=== PATIENT | male | born 2000 | race Two or more races ===

== ENCOUNTER 2024-12-23 03:39 | Inpatient (IN) | payer OTHER ==
[~2024-12-23] VITALS: Ht 170.2 cm; Wt 73.4 kg
[2024-12-23] VITALS (9 sets, daily range): BP systolic 116–126; BP diastolic 52–75; PULSE 35–45; RESP 13–20; TEMP 96.6–98.2; O2SAT 96–100
[2024-12-23] MEDS ORDERED: MORPHINE SULFATE INJ 2 MG/ml SYRG IV PRN (04:30)
[2024-12-23] MEDS ORDERED: NITROGLYCERIN 0.4 MG SL TAB SL PRN (04:30)
--- NOTE | 2024-12-23 04:54 | DVHHP2 ---
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 and seen by [facility] ER. Chest pain is sharp in nature, 8-9/10, radiates to the back occasionally, tried Motrin tablet but not helping, no aggravating factors. Patient received Aspirin in in [facility] ER and remained bradycardic with heart rate dropping to 34. Patient had bradycardia for the last 4 5 years. Stress test, echo, sleep study done and diagnosed NATALIE. Patient stopped use sleep machine due to feeling discomfort. Patient stated her grandfather having history of coronary artery disease and mother having heart disease. No history of sudden cardiac in his family. Currently patient denies any fever, cough, headache, blurry vision. No recent history of sick contact. Patient referred to [facility] for further management. PMHX: None PSHX: None Medicne: Nothing Personal and social hx: Never smokes cigarettes, use E cigarettes/vaping, use ETOH 4/5 days/week Allergy: No known allergy PCP: Unable to recall, [place]. Review of Systems Constitutional: No: Fever, Chills, Sweats, Weakness, Malaise, Other Eyes: No: Pain, Vision change, Conjunctivae inflammation, Eyelid inflammation, Other, Redness ENT: No: Ear pain, Ear discharge, Nose pain, Nose discharge, Nose congestion, Mouth pain, Mouth swelling, Throat pain, Throat swelling, Other Respiratory: Shortness of breath Cardiovascular: Chest Pain Gastrointestinal: No: Nausea, Vomiting, Abdominal Pain, Diarrhea, Constipation, Melena, Hematochezia, Other Genitourinary: No Dysuria, No Frequency, No Incontinence, No Hematuria, No Retention, No Other Musculoskeletal: No: other, neck pain, shoulder pain, arm pain, back pain, hand pain, leg pain, foot pain Skin: No: Rash, Lesions, Jaundice, Bruising, Other Neurological: No: Weakness, Numbness, Incoordination, Change in speech, Confusion, Seizures, Other Allergies: Coded Allergies: NO KNOWN ALLERGIES (Unverified , 12/23/24) Exam General Appearance: Alert, Oriented X3, Cooperative HEENT: PERRLA, EOMI Respiratory: Clear to auscultation Cardiovascular: Normal S1, Normal S2, No murmurs Abdominal: Normal bowel sounds, Soft, No tenderness, No hepatospenomegaly Extremities: No clubbing, No cyanosis, No edema, Normal pulses Skin: No rashes, No breakdown Neuro: Normal speech, Strength at 5/5 X4 ext Assessment/Plan Assessment/Plan # symptomatic bradycardia -patient experienced chest pain with shortness of breath -received aspirin in with [facility] [place] -EKG shows sinus bradycardia HR 38, possible left ventricular hypertrophy -serum troponin < 0.01 on 12/22/2024 in [facility] -monitoring telemetry -cardiology consult -echo #Chest pain rule out ACS, MUSCULOSKELETAL, GERD/GASTRITIS - Aspirin 81 mg daily -Serial troponin, EKG shows sinus bradycardia without significant ST or T changes, Cardiology has been consulted. -sucralfate 1 g p.o. given stat -Protonix 40 mg p.o. daily - TSH-2.55 , TROPONIN- 7 -fOLLOW U.tox, CXR. # DVT prophylaxis: Pt ambulating. # GI prophylaxis: Protonix 40 mg daily Plan of care discussion, greater than 29 minutes. Full code status. Plan discussed with Dr. Townsend Plan discussed with: Patient Date of Service: Dec 23, 2024 Billing Provider: VIDYA TOWNSEND MD Common Visit Codes: [id number] INP/OBS CARE (HIGH) Secondary Visit Codes: [id number] CARE PLAN 30 MINUTES VAL WILEY RESIDENT Dec 23, 2024 04:54
[2024-12-23 05:56] LABS: Hemoglobin 15.4 g/dL (13.5-17.5); Nucleated Red Blood Cells % 0.2 %
[2024-12-23 06:00] LABS: Hematocrit 45.5 % (41.0-53.0); Mean Corpuscular Hemoglobin 25.0 pg (28.0-32.0); Mean Corpuscular Volume 73.6 fL (80.0-100.0)
[2024-12-23] MEDS: SUCRALFATE 1 GM/10 ML ORAL SUSP PO ONE (06:00)
[2024-12-23] MEDS: PANTOPRAZOLE 40 MG TAB PO SCH (06:00)
[2024-12-23 06:21] LABS: Alanine Aminotransferase 32 U/L (7-40); Albumin 4.7 g/dL (3.2-4.8); Alkaline Phosphatase 72 U/L (46-116); Anion Gap 10 (5-15); BUN/Creatinine Ratio 19.8 (10.0-20.0); Bilirubin, Total 0.5 mg/dL (0.2-1.0); Blood Urea Nitrogen 18 mg/dL (9-23); Calcium 9.5 mg/dL (8.7-10.4); Carbon Dioxide 25 mmol/L (20-31); Chloride 105 mmol/L (98-107); Glucose 97 mg/dL (74-106); Potassium 3.8 mmol/L (3.5-5.1); Sodium 140 mmol/L (136-145); Total Protein 7.2 g/dL (5.7-8.2)
--- NOTE | 2024-12-23 07:58 | ECG ---
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
--- NOTE | 2024-12-23 10:23 | ECG ---
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
--- NOTE | 2024-12-23 11:00 | DVHCONRES ---
Date Seen: Dec 23, 2024 Resident Creating Document: GENARO ORTIZ RESDIENT History of Present Illness This is a 24-year-old male with past medical history of obstructive sleep apnea (was prescribed to use CPAP at night, stopped taking 2 years back) and long history of sinus bradycardia (since 13 years old), came to the hospital due to chest pain. Per patient, pain is localized at left lower sternal border, radiating to the back, 3/10 in intensity, stabbing in nature, with no clear exacerbating or relieving factor. He also reports of mild shortness of breaths and snoring during sleep. Patient has same symptoms on and off since multiple years, 2 years back underwent stress test and the result was negative for ischemia and had Holter monitoring for 1 week, no event was recorded. 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 Patient is still complaining of mild chest pain. Family History: Cardiovascular disease G8 MOTHER Allergies: Coded Allergies: NO KNOWN ALLERGIES (Unverified , 12/23/24) Current Medications Current Medications Medications (Trade) Dose Ordered Sig/Elissa Route PRN Reason Start Time Stop Time Status Last Admin Nitroglycerin (Ntrostat Sublingual) 0.4 mg Q5MINP PRN SL FOR CHEST PAIN 12/23/24 04:30 12/23/24 07:09 DC Morphine Sulfate 2 mg Q30M PRN IV FOR CHEST PAIN 12/23/24 04:30 12/23/24 07:09 DC Pantoprazole Sodium (Protonix Tablet) 40 mg DAILY@0600 PO 12/23/24 06:00 12/23/24 06:00 Aspirin 81 mg DAILY PO 12/23/24 10:00 12/23/24 08:44 Vital Signs Vital Signs Date Time Temp Pulse Resp B/P (MAP) Pulse Ox O2 Delivery O2 Flow Rate FiO2 12/23/24 08:38 97.6 37 18 116/62 (80) 100 97.6 12/23/24 08:00 Room Air* 0 21 Physical Exam General Appearance: Alert, Oriented X3, Cooperative, No acute distress HEENT: Bilateral enlarged tonsils Respiratory: Clear to auscultation, Normal air movement Cardiovascular: Regular rate, Normal S1, Normal S2, No murmurs, no chest wall tenderness Abdominal: Normal bowel sounds, Soft, No tenderness, No hepatospenomegaly, No masses Extremities: No clubbing, No cyanosis, No edema, Normal pulses, No tenderness/swelling Skin: No rashes, No breakdown, No significant lesion Neuro: Normal gait, Normal speech, Strength at 5/5 X4 ext, Normal tone, Sensation intact, Cranial nerves 3-12 NL, Reflexes 2+ Psych/Mental Status: Mental status NL, Mood NL Labs/Diagnostic Data Labs Test 12/23/24 08:54 12/23/24 05:49 Range/Units Magnesium Level 2.1 1.6-2.6 mg/dL Troponin I High Sensitivity 7 </=54 ng/L White Blood Count 4.8 4.4-10.8 10^3/uL Red Blood Count 6.19 H 4.5-5.90 10^6/uL Hemoglobin 15.4 13.5-17.5 g/dL Hematocrit 45.5 41.0-53.0 % Mean Corpuscular Volume 73.6 L 80.0-100.0 fL Mean Corpuscular Hemoglobin 25.0 L 28.0-32.0 pg Mean Corpuscular Hemoglobin Concent 33.9 32.0-36.0 g/dL Red Cell Distribution Width 14.6 H 11.8-14.3 % Platelet Count 229 140-450 10^3/uL Mean Platelet Volume 7.8 6.9-10.8 fL Neutrophils (%) (Auto) 54.8 37.0-80.0 % Lymphocytes (%) (Auto) 33.6 10.0-50.0 % Monocytes (%) (Auto) 9.0 0.0-12.0 % Eosinophils (%) (Auto) 2.2 0.0-7.0 % Basophils (%) (Auto) 0.4 0.0-2.0 % Neutrophils # (Auto) 2.6 1.6-8.6 10 ^3/uL Lymphocytes # (Auto) 1.6 0.4-5.4 10 ^3/uL Monocytes # (Auto) 0.4 0-1.3 10 ^3/uL Eosinophils # (Auto) 0.1 0-0.8 10 ^3/uL Basophils # (Auto) 0 0-0.2 10 ^3/uL Nucleated Red Blood Cells 0.2 % Sodium Level 140 136-145 mmol/L Potassium Level 3.8 3.5-5.1 mmol/L Chloride Level 105 98-107 mmol/L Carbon Dioxide Level 25 20-31 mmol/L Anion Gap 10 5-15 Blood Urea Nitrogen 18 9-23 mg/dL Creatinine 0.91 0.700-1.30 mg/dL Glomerular Filtration Rate Calc 121 >90 mL/min BUN/Creatinine Ratio 19.8 10.0-20.0 Serum Glucose 97 74-106 mg/dL Calcium Level 9.5 8.7-10.4 mg/dL Total Bilirubin 0.5 0.2-1.0 mg/dL Aspartate Amino Transferase (AST) 23 13-40 U/L Alanine Aminotransferase (ALT) 32 7-40 U/L Alkaline Phosphatase 72 46-116 U/L Total Protein 7.2 5.7-8.2 g/dL Albumin 4.7 3.2-4.8 g/dL Thyroid Stimulating Hormone (TSH) 2.55 0.55-4.78 uIU/mL Assessment Chest pain, noncardiac Asymptomatic bradycardia, likely due to obstructive sleep apnea Obstructive sleep apnea * EKGs shows sinus bradycardia with no significant ST or T-wave changes * Serial trop I is within normal limits * Echo shows status Plan/recommendation * Patient had positive chronotropic response * In context of no significant EKG changes, normal echo, normal trop I, no further cardiology evaluation is required at the moment * Patient may follow up with the pulmonology/ENT for sleep apnea and enlarged tonsils * We sign off the patient * Rest of plan per primary team Thank you for allowing as to take care of your patient, please call back if you have any question/concern. Plan/Recommendation HR stable in 40s, good chronotropy with wwalking, old ecg as young child was sinus mari normal echo no further workup or inpatient treatment signing off Plan discussed with: Patient, Other (Mother and RN) GENARO ORTIZ Dec 23, 2024 11:00 REINALDO BALDERRAMA MD Dec 23, 2024 18:29
--- NOTE | 2024-12-23 11:10 | DVH ---
CHEST RADIOGRAPH Indication: Chest pain Technique: Single frontal view of the chest was obtained Comparison: None FINDINGS: Lines and Tubes: None Lungs: No focal consolidation. Pleura: No effusion. No pneumothorax. Cardiomediastinal contours: Unremarkable Bones: No acute osseous abnormality. IMPRESSION: No acute cardiopulmonary disease.
[2024-12-23 11:40] LABS: Triglycerides 122 mg/dL (< 150)
[2024-12-23 12:00] LABS: Cholesterol 246 mg/dL (< 200); HDL Cholesterol 61 mg/dL (40-59)
[2024-12-23 13:38] LABS: Urine Protein, UAD TRACE (Negative)
[2024-12-23 13:55] LABS: Amphetamine Screen, Urine Neg (NEGATIVE); Barbiturate Scree,Urine Neg (NEGATIVE); Benzodiazephine Screen, Urine Neg (NEGATIVE); Cannabinoid Screen, Urine Neg (NEGATIVE); Cocaine Screen, Urine Neg (NEGATIVE); Opiate Scree,Urine Neg (NEGATIVE); Phencyclidine Screen, Urine Neg (NEGATIVE)
--- NOTE | 2024-12-23 14:52 | DVHSR ---
APPROVED REPORT EXAM: Two-dimensional and M-mode echocardiogram with Doppler and color Doppler. Blood Pressure: 124/75 mmHg INDICATION Symptomatic bradycardia RISK FACTORS Height: 67, Weight: 157 DIMENSIONS LVDd4.6 (3.8-5.7cm)LA (2D)3.3 (1.9-4.0cm)Aortic Root3.2 (2.0-3.7cm) LVDs2.8 (2.5-4.0cm)LA (MM) (1.9-4.0cm)Aortic Cusp Exc1.9 (1.5-2.0cm) EF (%) 70.0 (55-70%)Rt. Atrium3.3 (1.9-4.0cm)Asc. Aorta cm IVSd1.1 (0.7-1.1cm)RV (D) (1.8-2.4cm) PWd1.2 (0.7-1.1cm) Mitral Valve MitralMitral Stenosis E wave0.94m/sMV Mean GR.mmHg A wave0.42m/sMV Peak GR.mmHg E/A ratio2.22D MVAcm2 DECEL [id number] 1/2 Timems Aortic Valve Aortic ValveAortic Stenosis V11.25m/Melinda Mean GR.5mmHg V21.55m/Melinda Peak GR.10mmHg LVOT Diameter2.1 (1.8-2.4cm)Doppler AVA2.79cm2 Pulmonic Valve V21.28m/s Tricuspid Valve TR Velocity1.62m/s [id number] Conclusion lvef 65% normal rv function normal atria no severe valve abnormaliites noted
--- NOTE | 2024-12-23 19:25 | DVHPNRES ---
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 and seen by [facility] ER. Chest pain is sharp in nature, 8-9/10, radiates to the back occasionally, tried Motrin tablet but not helping, no aggravating factors. Patient received Aspirin in in [facility] ER and remained bradycardic with heart rate dropping to 34. Patient had bradycardia for the last 4 5 years. Stress test, echo, sleep study done and diagnosed NATALIE. Patient stopped use sleep machine due to feeling discomfort. Patient stated her grandfather having history of coronary artery disease and mother having heart disease. No history of sudden cardiac in his family. Currently patient denies any fever, cough, headache, blurry vision. No recent history of sick contact. Patient referred to [facility] for further management. Patient was seen at bedside with mother present. He appears comfortable and alert x3. No overnight events were reported. He complained of chest pain which radiates to the back,3/10 in intensity, stabbing in nature , with no clear aggravating or relieving factors. Also reports mild shortness of breath and snoring during sleep. Symptoms were intermittent since he was 13 years old. Echo was done. Sinus Bradycardia improved after walking short distance. Objective vital signs Vital Sign Date Time Temp Pulse Resp B/P (MAP) Pulse Ox O2 Delivery O2 Flow Rate FiO2 12/23/24 16:49 98.0 40 20 122/52 (75) 97 98.0 12/23/24 08:00 Room Air* 0 21 Total Intake and Output 12/22/24 12/22/24 12/23/24 15:00 23:00 07:00 Intake Total 0 ml Balance 0 ml medications Current Medications Medications Dose Ordered Sig/Elissa Route Start Time Stop Time Status Last Admin Dose Admin Pantoprazole Sodium 40 mg DAILY@0600 PO 12/23/24 06:00 12/23/24 06:00 40 MG Aspirin 81 mg DAILY PO 12/23/24 10:00 12/23/24 08:44 81 MG Examination General: Patient alert and oriented in person, place and time. Patient following commands. HEENT: Normocephalic, atraumatic, moist mucous membranes Respiratory/pulmonary: Clear lungs bilaterally, vesicular murmurs present in almost all lung valle, no associated crackles or wheezes. Cardiovascular: Normal heart sounds S1 and S2 with no associated murmurs Abdomen: Abdomen nondistended, there is no pain to palpation in any of the abdominal quadrants, no palpable masses. Extremities: There is no peripheral edema present at the lower extremities. Peripheral Pulses: 3+ Radial (R). 3+ Radial (L). 3+ Dorsalis pedis (R). 3+ Dorsalis pedis(L) Skin: No rashes or pruritus, there is no sacral edema present at this time. Neurological: Intact cranial nerves with no focal neurologic deficits laboratory and microbiology Laboratory Tests 12/23/24 05:49 Test 12/23/24 05:49 Range/Units Serum Glucose 97 74-106 mg/dL Problem List/Assessment/Plan Problem List/Assessment/Plan Assessment and plan: # chest pain rule out ACS # chest pain likely due to gastritis # Asymptomatic bradycardia # Bradycardia likely due to obstructive sleep apnea - Initial EKG showed sinus bradycardia, no ST-T changes and troponins are unremarkable - Echo done - Ejection fraction 68%, and with no valvular abnormalities - Cardiology was on board, mentioned patient has good chronotropic response, no inpatient cardiac evaluation is necessary at this time and recommended outpatient follow-up with PCP and pulmonology for sleep study and subsequent management of obstructive sleep apnea - Protonix 40 mg daily. # Hyperlipidemia -counseled patient regarding dash diet, lifestyle modification and physical exercise at least 150 minute 5 times a week. Goal of care discussed with the patient for 25 minutes Plan Discussed with patient and nurse Plan discussed with Dr. Medrano Plan discussed with: Patient Date of Service: Dec 23, 2024 Billing Provider: PATRICIA MEDRANO MD Common Visit Codes: [id number] INP/OBS CARE(MOD) EVONNE ZIMMER RESIDENT Dec 23, 2024 19:25 PATRICIA MEDRANO MD Dec 24, 2024 12:30
[2024-12-24 01:00] VITALS: BP 118/70; PULSE 41; RESP 13; TEMP 97.9; O2SAT 97
[2024-12-24 05:00] VITALS: BP 111/68; PULSE 46; RESP 14; TEMP 97.6; O2SAT 99
[2024-12-24 08:00] VITALS: PULSE 33; PULSE 41; RESP 16; O2SAT 95
[2024-12-24 08:11] VITALS: BP 116/66; PULSE 41; RESP 16; TEMP 97.6; O2SAT 95
[2024-12-24 09:00] VITALS: BP 116/66; PULSE 41; RESP 16; TEMP 97.6; O2SAT 95
[2024-12-24] MEDS ORDERED: FAMO20TA10 PO (11:32)
--- NOTE | 2024-12-24 14:59 | DVHDSRES ---
Discharge Summary Date of Admission Resident Creating Document: EVONNE ZIMMER RESIDENT Dec 23, 2024 at 03:55 Date of Discharge: Dec 24, 2024 Admitting Diagnosis Chest pain Labs/Diagnostic Data: Laboratory Results Test 12/23/24 12:42 12/23/24 12:06 12/23/24 08:54 12/23/24 07:30 Urine Color Yellow (Yellow) Urine Clarity Clear (Clear) Urine pH 6.0 (5.0-9.0) Urine Specific [place] 1.032 (1.001-1.035) Urine Protein Trace (Negative) Urine Ketones Negative (Negative) Urine Blood Negative /uL (Negative) Urine Nitrite Negative (Negative) Urine Bilirubin Negative (Negative) Urine Urobilinogen Normal mg/dL (Negative) Urine Leukocyte Esterase Negative /uL (Negative) Urine RBC 1 /hpf (0 - 3) Urine Microscopic WBC 1 /HPF (0-3) Urine Squamous Epithelial Cells None seen /hpf (<5) Urine Bacteria None seen /hpf (None Seen) Urine Mucus Few (None Seen) Urine Glucose Normal mg/dL (Normal) Urine Opiates Screen Neg (NEGATIVE) Urine Fentanyl Screen Neg (NEGATIVE) Urine Barbiturates Screen Neg (NEGATIVE) Urine Phencyclidine Screen Neg (NEGATIVE) Urine Amphetamines Screen Neg (NEGATIVE) Urine Benzodiazepines Screen Neg (NEGATIVE) Urine Cocaine Screen Neg (NEGATIVE) Urine Cannabinoids Screen Neg (NEGATIVE) Anti-Nuclear Antibody Screen Negative (Negative) Magnesium Level 2.1 mg/dL (1.6-2.6) Troponin I High Sensitivity 7 ng/L (</=54) Triglycerides Level 122 mg/dL (< 150) Cholesterol Level 246 mg/dL (< 200) LDL Cholesterol 171 mg/dL (< 100) HDL Cholesterol 61 mg/dL (40-59) Plasma/Serum Blood Alcohol < 3.0 mg/dL (<10) Test 12/23/24 05:49 White Blood Count 4.8 10^3/uL (4.4-10.8) Red Blood Count 6.19 10^6/uL (4.5-5.90) Hemoglobin 15.4 g/dL (13.5-17.5) Hematocrit 45.5 % (41.0-53.0) Mean Corpuscular Volume 73.6 fL (80.0-100.0) Mean Corpuscular Hemoglobin 25.0 pg (28.0-32.0) Mean Corpuscular Hemoglobin Concent 33.9 g/dL (32.0-36.0) Red Cell Distribution Width 14.6 % (11.8-14.3) Platelet Count 229 10^3/uL (140-450) Mean Platelet Volume 7.8 fL (6.9-10.8) Neutrophils (%) (Auto) 54.8 % (37.0-80.0) Lymphocytes (%) (Auto) 33.6 % (10.0-50.0) Monocytes (%) (Auto) 9.0 % (0.0-12.0) Eosinophils (%) (Auto) 2.2 % (0.0-7.0) Basophils (%) (Auto) 0.4 % (0.0-2.0) Neutrophils # (Auto) 2.6 10 ^3/uL (1.6-8.6) Lymphocytes # (Auto) 1.6 10 ^3/uL (0.4-5.4) Monocytes # (Auto) 0.4 10 ^3/uL (0-1.3) Eosinophils # (Auto) 0.1 10 ^3/uL (0-0.8) Basophils # (Auto) 0 10 ^3/uL (0-0.2) Nucleated Red Blood Cells 0.2 % Sodium Level 140 mmol/L (136-145) Potassium Level 3.8 mmol/L (3.5-5.1) Chloride Level 105 mmol/L (98-107) Carbon Dioxide Level 25 mmol/L (20-31) Anion Gap 10 (5-15) Blood Urea Nitrogen 18 mg/dL (9-23) Creatinine 0.91 mg/dL (0.700-1.30) Glomerular Filtration Rate Calc 121 mL/min (>90) BUN/Creatinine Ratio 19.8 (10.0-20.0) Serum Glucose 97 mg/dL (74-106) Calcium Level 9.5 mg/dL (8.7-10.4) Total Bilirubin 0.5 mg/dL (0.2-1.0) Aspartate Amino Transferase (AST) 23 U/L (13-40) Alanine Aminotransferase (ALT) 32 U/L (7-40) Alkaline Phosphatase 72 U/L (46-116) Total Protein 7.2 g/dL (5.7-8.2) Albumin 4.7 g/dL (3.2-4.8) Thyroid Stimulating Hormone (TSH) 2.55 uIU/mL (0.55-4.78) Other Laboratory Tests 12/23/24 05:49 Brief Hx & Hospital Course: Patient is a 24-year-old man with past medical history of obstructive sleep apnea who came to the ED experiencing chest pain associated with shortness of breath, the pain was sharp in nature 8/10 in intensity and radiates to the back and was not relieved by medication. Patient received aspirin in the ER and remained bradycardic with heart rate dropping to 34. Patient states that the symptoms were intermittent since he was 13 years old. in the Hospital echo was done, Echo shows left ventricular ejection fraction 65%, normal RV function, normal atria, no severe valvular abnormalities. the EKG shows sinus bradycardia with no significant ST or T-wave changes. Serial troponins were within normal limits. The asymptomatic bradycardia likely due to obstructive sleep apnea. Cariology was consulted and they stated Patient had positive chronotropic response ,In context of no significant EKG changes, normal echo, normal trop I, no further cardiology evaluation is required at the moment. Patient may follow up with the pulmonology/ENT for sleep apnea and enlarged tonsils . Asymptomatic bradycardia likely due to obstructive sleep apnea. the plan was patient was given aspirin 81 mg daily and sucralfate, Protonix. ACS was ruled out. Patient has hyperlipidemia was consulted for regular diet, lifestyle modification and physical exercise at least 150 minutes 5 times a week. Patient's condition was improved and he was stable for discharge. I discussed with the patient and his mother and they agreed to discharge plan. General: Patient alert and oriented in person, place and time. Patient following commands. HEENT: Normocephalic, atraumatic, moist mucous membranes Respiratory/pulmonary: Clear lungs bilaterally, vesicular murmurs present in almost all lung valle, no associated crackles or wheezes. Cardiovascular: Normal heart sounds S1 and S2 with no associated murmurs, mild chest discomfort Abdomen: Abdomen nondistended, there is no pain to palpation in any of the abdominal quadrants, no palpable masses. Extremities: There is no peripheral edema present at the lower extremities. Peripheral Pulses: 3+ Radial (R). 3+ Radial (L). 3+ Dorsalis pedis (R). 3+ Dorsalis pedis(L) Skin: No rashes or pruritus, there is no sacral edema present at this time. Neurological: Intact cranial nerves with no focal neurologic deficits Condition at Discharge: Good Final Diagnosis/Problems List # chest pain ruled out ACS # chest pain likely due to gastritis # Asymptomatic bradycardia # Bradycardia likely due to obstructive sleep apnea # Hyperlipidemia Discharge Disposition: Home Discharge Instruct/Medications Diet: Cardiac 2g Na,low cholest Activity: No Restrictions, As Tolerated Medications: As per EMR Scheduled Famotidine (Pepcid Tablet), 1 TAB PO BID Discharge Statement: "Patient was advised to return to the ER or call 911 if any headaches, dizziness, shortness of breath, chest pain, abdominal pain, bleeding, fevers, or worsening of medical condition. Patient was counseled about treatment plan, medications, possible side effects, patientverbalized understanding. All questions were answered to the best of my ability. This discharge took greater then 30 minutes in planning, reviewing documentation, counseling the patient, and discussing with other team members." ASSESSMENT ASSESSMENT Assessment Symtopatic BRADYCARDIA, rule out ACS Date of Service: Dec 24, 2024 Billing Provider: PATRICIA MEDRANO MD Common Visit Codes: [id number]/OBS DISCH DAY >30min EVONNE ZIMMER RESIDENT Dec 24, 2024 14:58 PATRICIA MEDRANO MD Dec 25, 2024 16:56
== END 2024-12-24 12:49 | disposition home or self-care (01) | DRG 392 ==
LOC: TELE-EAST 03:55
PROVIDERS: ADMIT Student in an Organized Health Care Education/Training Program; ATTEND Student in an Organized Health Care Education/Training Program
DX: K29.70 Gastritis, unspecified, without bleeding (principal); G47.33 Obstructive sleep apnea (adult) (pediatric); K21.9 Gastro-esophageal reflux disease without esophagitis; E78.5 Hyperlipidemia, unspecified; Z79.899 Other long term (current) drug therapy; Z82.49 Family history of ischemic heart disease and other diseases of the circulatory system
CPT/HCPCS: 36415; 71045; 80053; 80061; 80307; 80320; 81001; 83735; 84443; 84484; 85025; 86038; 93005; 93306; G0378